=== PATIENT | female | born 1985 | race Caucasian/White ===

== ENCOUNTER 2018-08-15 15:27 | Emergency (ER) | payer SELFPAY ==
[2018-08-15] MEDS ORDERED: IPRATROPIUM/ALBUTEROL 0.5-2.5 MG/3 ML AMPUL NEB ONE (15:44)
[2018-08-15] MEDS ORDERED: AZITHROMYCIN 250 MG TABLET PO ONE (15:45)
[2018-08-15] MEDS ORDERED: PREDNISONE 20 MG TABLET PO ONE ×2 (15:45→21:23)
--- NOTE | 2018-08-15 16:31 | ER Document Report ---
ED General - General Chief Complaint: Chest Congestion Stated Complaint: COUGH Time Seen by Provider: 08/15/18 15:41 Mode of Arrival: Ambulatory Information source: Patient Notes: 32-year-old female with hypertension, not currently on medication presents with complaint of cough, congestion that started 6 days prior to arrival. Patient states that she is experiencing chills, sweats. She reports increased shortness of breath with minimal activity. Denies any lower extremity TRAVEL OUTSIDE OF THE [place] IN LAST 30 DAYS: No - HPI Onset: Last week Onset/Duration: Gradual, Persistent Quality of pain: Achy Severity: Mild Associated symptoms: Chills, Nonproductive cough, Fever, Shortness of breath. denies: Diarrhea, Nausea, Vomiting Exacerbated by: Walking, Coughing Relieved by: Denies Similar symptoms previously: Yes Recently seen / treated by doctor: No - Related Data Allergies/Adverse Reactions: bee venom protein (honey bee) Allergy (Verified 08/15/18 18:33) paroxetine [From Paxil] Allergy (Verified 08/15/18 18:33) Past Medical History - General Information source: Patient - Social History Smoking Status: Current Every Day Smoker Cigarette use (# per day): Yes - 10 Chew tobacco use (# tins/day): No Smoking Education Provided: Yes - Smoking cessation counseling was provided for 4 minutes at the bedside Frequency of alcohol use: Rare Drug Abuse: None Lives with: Spouse/Significant other Family History: Reviewed & Not Pertinent Patient has suicidal ideation: No Patient has homicidal ideation: No - Past Medical History Cardiac Medical History: Reports: Hx Hypertension - unmedicated Renal/ Medical History: Denies: Hx Peritoneal Dialysis Past Surgical History: Reports: Hx Tonsillectomy Review of Systems - Review of Systems Notes: REVIEW OF SYSTEMS: CONSTITUTIONAL : Denies weight loss, recent hospitalizations. EENT: Denies visual changes, eye pain. Denies sore throat, oral lesions, difficulty swallowing. CARDIOVASCULAR: Denies chest pain. Denies palpitations. Denies lower extremity edema. RESPIRATORY: + Cough, wheezing, shortness of breath GASTROINTESTINAL: Denies abdominal pain or distention. Denies nausea, vomiting, or diarrhea. Denies blood in vomitus, stools, or per rectum. Denies black, tarry stools. Denies constipation. GENITOURINARY: Denies difficulty urinating, painful urination, frequency, blood in urine, or vaginal discharge. MUSCULOSKELETAL: Denies back or neck pain or stiffness. Denies joint pain or swelling. SKIN: Denies rash, lesions or sores. HEMATOLOGIC : Denies easy bruising or bleeding. LYMPHATIC: Denies swollen glands. NEUROLOGICAL: Denies confusion or altered mental status. Denies loss of consciousness. Denies dizziness or lightheadedness. Denies headache. Denies weakness or paralysis. Denies problems difficulty with ambulation, slurred speech. Denies sensory loss, numbness, or tingling. Denies seizures. PSYCHIATRIC: Denies anxiety or stress. Denies depression, suicidal ideation, or homicidal ideation. Denies visual or auditory hallucinations. Physical Exam - Vital signs Vitals: Temp Pulse Resp BP Pulse Ox 98.5 F 98 24 H 146/90 H 98 08/15/18 15:37 08/15/18 15:37 08/15/18 15:37 08/15/18 15:37 08/15/18 15:37 - Notes Notes: PHYSICAL EXAMINATION: GENERAL: Morbidly obese, no acute distress. HEAD: Atraumatic, normocephalic. EYES: Pupils equal round and reactive to light, extraocular movements intact, conjunctiva are normal. ENT: Nares patent, oropharynx clear without exudates. Moist mucous membranes. NECK: Normal range of motion, supple without lymphadenopathy LUNGS: Expiratory wheezing in the lower lung [place] bilaterally. No accessory muscle use, no tachypnea, no hypoxia. HEART: Regular rate and rhythm without murmurs ABDOMEN: Soft, nontender, nondistended abdomen. No guarding, no rebound. No masses appreciated. Female : deferred Musculoskeletal: Normal range of motion, no pitting or edema. No cyanosis. NEUROLOGICAL: Cranial nerves grossly intact. Normal speech, normal gait. Normal sensory, motor exams PSYCH: Normal mood, normal affect. SKIN: Warm, Dry, normal turgor, no rashes or lesions noted. Course - Re-evaluation Re-evalutation: Chest X-Ray 08/15/18 15:45 IMPRESSION: Enlarged heart with mild vascular congestion. Chest X-Ray 08/15/18 15:45 IMPRESSION: Enlarged heart with mild vascular congestion. Chest/Abdomen CTA 08/15/18 17:55 IMPRESSION: NORMAL CTA OF THE CHEST. NO PULMONARY EMBOLI. Temp Pulse Resp BP Pulse Ox 99.5 F 95 20 165/95 H 96 08/15/18 22:10 08/15/18 22:10 08/15/18 22:10 08/15/18 22:27 08/15/18 22:10 Chest X-Ray 08/15/18 15:45 IMPRESSION: Enlarged heart with mild vascular congestion. Chest/Abdomen CTA 08/15/18 17:55 IMPRESSION: NORMAL CTA OF THE CHEST. NO PULMONARY EMBOLI. Laboratory 08/15/18 08/15/18 08/15/18 18:10 18:10 18:10 WBC 11.4 H RBC 4.67 Hgb 12.1 Hct 38.3 MCV 82 MCH 25.9 L MCHC 31.7 L RDW 17.4 H Plt Count 328 Seg Neutrophils % 77.3 Lymphocytes % 14.9 Monocytes % 6.0 Eosinophils % 1.5 Basophils % 0.3 Absolute Neutrophils 8.8 H Absolute Lymphocytes 1.7 Absolute Monocytes 0.7 Absolute Eosinophils 0.2 Absolute Basophils 0.0 Sodium 139.9 Potassium 4.0 Chloride 98 Carbon Dioxide 36 H Anion Gap 6 BUN 9 Creatinine 0.55 Est GFR ( Amer) > 60 Est GFR (Non-Af Amer) > 60 Glucose 113 H Calcium 8.9 Total Bilirubin 0.5 Direct Bilirubin 0.2 Neonat Total Bilirubin Not Reportable Neonat Direct Bilirubin Not Reportable Neonat Indirect Bili Not Reportable AST 16 ALT 12 Alkaline Phosphatase 125 Creatine Kinase 36 CK-MB (CK-2) 0.44 Troponin I < 0.012 NT-Pro-B Natriuret Pep 353 H Total Protein 7.4 Albumin 3.6 08/15/18 16:41 Patient did receive breathing treatments, prednisone, labetalol, Lasix and azithromycin during her ED course. 08/17/18 12:32 32-year-old female presented with upper respiratory symptoms including cough, congestion and shortness of breath. She did mention worsening shortness of breath with exertion which is new for her. Patient is morbidly obese and weighs nearly 400 pounds. She states that she has known that she has had high blood pressure since she was a teenager but after several medications that failed to the control her blood pressure she stated that she just "gave up". Initial workup was a chest x-ray for the patient's persistent cough and reports of chills and sweats. This showed an enlarged heart with mild vascular congestion. This prompted a further workup to assess for possible congestive heart failure due to untreated hypertension. Upon arrival patient was afebrile, markedly hypertensive. Breath sounds are diminished but I believe this is likely secondary to large body habitus. CBC showed mild leukocytosis without anemia. CMP unremarkable. Cardiac enzymes are within normal limits. Patient does have a BNP of 353. CT of the chest was obtained and showed no evidence of pleural effusion, pulmonary emboli. I spent over 30 minutes discussing the acute need for patient to make some significant lifestyle changes including smoking cessation, weight loss, exercise. We discussed complications of untreated hypertensive including heart failure, coronary artery disease, stroke. Patient is very tearful but thankful. I urged her to establish primary care, seek nutritional advice and begin exercising immediately or she would be looking at a short life filled with multiple medical complications. Patient states that approximately 4 weeks she will have insurance from her new job. I urged her to make an appointment now so that within the next month she will be able to get it. I did give her 1 week's worth of Lasix and started her on a blood pressure medication. Patient was evaluated and treated as appropriate for the patient's presenting symptoms and complaint, with consideration of any critical or life threatening conditions that may be associated with their obtained history and exam as noted above. All results were discussed with patient and... Patient provided the opportunity to ask questions, and express concerns. Patient was educated on treatments based on their presumed diagnosis as noted above. At this time we will discharge the patient with return precautions and follow-up recommendations. Verbal discharge instructions given a the bedside. Medication warnings reviewed. Patient is in agreement with this plan and has verbalized understanding of return precautions. After careful consideration I feel that that patient can be safely discharged from the emergency department, they were advised to followup with a primary care physician in 2-3 days. Dictation on this chart was performed using voice recognition software and may result in unintended grammatical, spelling, syntax or errors. - Vital Signs Vital signs: Temp Pulse Resp BP Pulse Ox 99.5 F 95 20 165/95 H 96 08/15/18 22:10 08/15/18 22:10 08/15/18 22:10 08/15/18 22:27 08/15/18 22:10 - Laboratory Result Diagrams: 08/15/18 18:10 08/15/18 18:10 Laboratory results interpreted by me: 08/15/18 08/15/18 08/15/18 18:10 18:10 18:10 WBC 11.4 H MCH 25.9 L MCHC 31.7 L RDW 17.4 H Absolute Neutrophils 8.8 H Carbon Dioxide 36 H Glucose 113 H NT-Pro-B Natriuret Pep 353 H - Diagnostic Test Radiology reviewed: Image reviewed, Reports reviewed - EKG Interpretation by Me EKG shows normal: Sinus rhythm Rate: Normal Rhythm: NSR When compared to previous EKG there are: Previous EKG unavailable Critical Care Note - Critical Care Note Total time excluding time spent on procedures (mins): 35 - Minutes of critical care time spent in direct contact evaluating and reevaluating the patient, treating symptoms, reviewing labs and studies and speaking with family and consultants excluding any procedures Discharge - Discharge Clinical Impression: Cough, Cardiac enlargement, Pulmonary vascular congestion, Tobacco use Hypertension Qualifiers: Hypertension type: unspecified Qualified Code(s): I10 - Essential (primary) hypertension Obesity Qualifiers: Obesity type: unspecified obesity type Obesity classification: adult class 3 (BMI >= 40) Serious obesity comorbidity presence: with serious comorbidity Body mass index: BMI 70 or greater Qualified Code(s): E66.01 - Morbid (severe) obesity due to excess calories Dyspnea Qualifiers: Dyspnea type: dyspnea on exertion Qualified Code(s): R06.09 - Other forms of dyspnea URI (upper respiratory infection) Qualifiers: URI type: unspecified viral URI Qualified Code(s): J06.9 - Acute upper respiratory infection, unspecified Condition: Good Disposition: HOME, SELF-CARE Instructions: Congestive Heart Failure ([facility]), Diet to Decrease Risk of Heart Attack ([facility]), Heart Disease Prevention ([facility]), Upper Respiratory Illness ([facility]) Additional Instructions: Regarding Blood Pressure: Your blood pressure was noted to be greater than 120/80 at least once in the emergency room today. It is recommended that you follow-up with her primary care physician in the next week for repeat blood pressure check. The Centers for Medicare and Medicaid Services has specific recommendations regarding a person's blood pressure. There are several lifestyle modifications that are recommended in order to help lower your blood pressure. These include: Quitting smoking if you smoke. Reducing the amount of sodium in your diet. Getting regular exercise Limiting alcohol to no more than 2 drinks a day for men and one drink a day for women. Eating a healthy diet, including more fruits and vegetables, low fat dairy products, less saturated and total fat. Losing weight if you are overweight. FOLLOW-UP: Call your doctor's office and let them know your blood pressure was elevated and you were advised to get your blood pressure checked in the above time-line. If you are unable to get into your doctor's office in this time period, you can follow-up with a new physician (I have left the numbers below for a few primary care doctors affiliated with this [facility]) or return to the ER. PRIMARY CARE PHYSICIANS: Dr. Rios Chao [address], [place] [address] [phone] Prescriptions: Hydrochlorothiazide [Hydrodiuril 25 mg Tablet] 25 mg PO QHS #30 tablet Furosemide [Lasix 20 mg Tablet] 20 mg PO QAM #10 tablet Prednisone [Deltasone 20 mg Tablet] 2 tab PO DAILY 5 Days #10 tablet Forms: Smoking Cessation Education, Elevated Blood Pressure Referrals: RIOS CHAO MD [ACTIVE STAFF] - Follow up in 1 week
--- NOTE | 2018-08-15 16:33 | RADIOLOGY REPORT (SQ) ---
EXAM DESCRIPTION: CHEST 2 VIEWS COMPLETED DATE/TIME: 08/15/2018 4:22 pm REASON FOR STUDY: cough fever COMPARISON: None. TECHNIQUE: Frontal and lateral radiographic views of the chest acquired. NUMBER OF VIEWS: Two view. LIMITATIONS: None. FINDINGS: LUNGS AND PLEURA: Mild vascular congestion. No evidence of overt pneumonia. MEDIASTINUM AND HILAR STRUCTURES: No masses or contour abnormalities. HEART AND VASCULAR STRUCTURES: Cardiac enlargement. BONES: No acute findings. HARDWARE: None in the chest. OTHER: No other significant finding. IMPRESSION: Enlarged heart with mild vascular congestion. TECHNICAL DOCUMENTATION: JOB ID: [id number] [employer]- All Rights Reserved Reading location - IP/workstation name: [email or web address]
[2018-08-15] MEDS ORDERED: LABETALOL HCL INJ 20 MG/4 ML DISP.SYRIN IV ONE ×2 (17:56→19:14)
[2018-08-15 18:26] LABS: ABSOLUTE EOSINOPHILS # (AUTO) 0.2 10^3/uL (0.0-0.6); ABSOLUTE LYMPHOCYTES (AUTO) 1.7 10^3/uL (0.5-4.7); ABSOLUTE MONOCYTES (AUTO) 0.7 10^3/uL (0.1-1.4); ABSOLUTE NEUT (AUTO) 8.8 10^3/uL (1.7-8.2); BASOPHILS % (AUTO) 0.3 % (0-2); EOSINOPHILS % (AUTO) 1.5 % (0-6); HEMATOCRIT 38.3 % (36.0-47.0); HEMOGLOBIN 12.1 g/dL (12.0-15.5); LYMPHOCYTES % (AUTO) 14.9 % (13-45); MEAN CORPUSCULAR HEMOGLOBIN 25.9 pg (27.0-33.4); MEAN CORPUSCULAR HGB CONC 31.7 g/dL (32.0-36.0); MEAN CORPUSCULAR VOLUME 82 fl (80-97); PLATELET COUNT 328 10^3/uL (150-450); RED BLOOD COUNT 4.67 10^6/uL (3.72-5.28); RED CELL DISTRIBUTION WIDTH 17.4 % (11.5-14.0); SEGMENTED NEUTROPHILS % (AUTO) 77.3 % (42-78); TOTAL CELLS COUNTED % (AUTO) 100 %; WHITE BLOOD COUNT 11.4 10^3/uL (4.0-10.5)
[2018-08-15 18:39] LABS: ALANINE AMINOTRANSFERASE 12 U/L (9-52); ALBUMIN 3.6 g/dL (3.5-5.0); ALKALINE PHOSPHATASE 125 U/L (38-126); ANION GAP 6 (5-19); ASPARTATE AMINO TRANSFERASE 16 U/L (14-36); BILIRUBIN,DIRECT 0.2 mg/dL (0.0-0.4); BILIRUBIN,TOTAL 0.5 mg/dL (0.2-1.3); BLOOD UREA NITROGEN 9 mg/dL (7-20); CALCIUM 8.9 mg/dL (8.4-10.2); CARBON DIOXIDE 36 mmol/L (22-30); CHLORIDE 98 mmol/L (98-107); CREATINE KINASE 36 U/L (30-135); GLUCOSE 113 mg/dL (75-110); SODIUM 139.9 mmol/L (137-145); TOTAL PROTEIN 7.4 g/dL (6.3-8.2)
[2018-08-15 18:51] LABS: CREATINE KINASE MB 0.44 ng/mL (<4.55); NT PRO BNP 353 pg/mL (<125)
[2018-08-15 18:53] LABS: TROPONIN I < 0.012 ng/mL
[2018-08-15] MEDS ORDERED: FUROSEMIDE INJ/PF 20 MG/2 ML SDV IV ONE (20:24)
--- NOTE | 2018-08-15 20:28 | EKG REPORT ---
SEVERITY:- NORMAL ECG - SINUS RHYTHM : Confirmed by: Eli White 15-Aug-2018 20:28:05
--- NOTE | 2018-08-15 20:38 | RADIOLOGY REPORT (SQ) ---
EXAM DESCRIPTION: CTA CHEST COMPLETED DATE/TIME: 08/15/2018 8:27 pm REASON FOR STUDY: sob COMPARISON: Recent radiographs. TECHNIQUE: CT scan of the chest performed using helical scanning technique with dynamic intravenous contrast injection. Images reviewed with lung, soft tissue and bone windows. Reconstructed coronal and sagittal MPR images reviewed. Additional 3 dimensional post-processing performed to develop Maximal Intensity Projection images (MT P). All images stored on PACS. All CT scanners at this facility use dose modulation, iterative reconstruction, and/or weight based d osing when appropriate to reduce radiation dose to as low as reasonably achievable (ALARA). [facility]: Dose Right [facility]: CareDose [facility]: Dose Right [facility]: Teradose 4D [facility]: Guidekick CONTRAST TYPE AND DOSE: contrast/concentration: Isovue 350.00 mg/ml; Total Contrast Delivered: 90.0 ml; Total Saline Delivered: 70.0 ml Contrast bolus adequate for pulmonary arteries and aorta. RENAL FUNCTION: None required. The patient is less than 50 years old. RADIATION DOSE: CT Rad equipment meets quality standard of care and radiation dose reduction techniq ues were employed. CTDIvol: 29.8 - 41.3 mGy. DLP: 1170 mGy-cm. . LIMITATIONS: None. FINDINGS: LUNGS AND PLEURA: No masses, infiltrates, or pneumothorax. No pleural effusions or pleura l calcifications. AORTA AND GREAT VESSELS: No aneurysm. Contrast bolus not optimized for the aorta. HEART: No pericardial effusion. No significant coronary artery calcifications. PULMONARY ARTERIES: No emboli visualized in the main pulmonary arteries or the segmental branches. HILAR AND MEDIASTINAL STRUCTURES: No identified masses or abnormal nodes. HARDWARE: None in the chest. UPPER ABDOMEN: No significant findings. Limited exam. THYROID AND OTHER SOFT TISSUES: No masses. No adenopathy. BONES: No acute or significant finding. 3D MIPS: Confirm above findings. OTHER: No other significant finding. IMPRESSION: NORMAL CTA OF THE CHEST. NO PULMONARY EMBOLI. COMMENT: Quality ID # [id number]: Final reports with documentation of one or more dose reduction techniques (e.g., Automated exposure control, adjustment of the mA and/or kV according to patient size, use of iterative reconstruction technique) TECHNICAL DOCUMENTATION: JOB ID: [id number] [employer]- All Rights Reserved Reading location - IP/workstation name: [email or web address]
[2018-08-15] MEDS ORDERED: ALBUTEROL SULFATE HFA (90 MCG/PUFF) 8 GM MDI (1 MDI/ER DISP) IH PRN (21:17)
[2018-08-15] MEDS ORDERED: HYDROCHLOROTHIAZIDE 25 MG TABLET PO ONE (21:23)
[2018-08-15 22:28] VITALS: BP 165/95
== END 2018-08-15 22:34 | disposition home or self-care (01) ==
LOC: ER 15:27
DX: J06.9 Acute upper respiratory infection, unspecified (principal); R06.09 Other forms of dyspnea; R09.89 Other specified symptoms and signs involving the circulatory and respiratory systems; I10 Essential (primary) hypertension; I51.7 Cardiomegaly; E66.01 Morbid (severe) obesity due to excess calories; Z68.45 Body mass index [BMI] 70 or greater, adult; R50.9 Fever, unspecified; R05 Cough; F17.210 Nicotine dependence, cigarettes, uncomplicated
CPT/HCPCS: 93005; 99406; 94640; 99285; 96374; 96375; 36415; 82553; 82550; 85025; 80053; 84484; 83880; 71046; 71275; 93010; J1940; J3490 ×2; J7512; J7620

== ENCOUNTER 2019-08-22 10:50 | Emergency (ER) | payer SELFPAY ==
--- NOTE | 2019-08-22 11:14 | ER Document Report ---
ED Medical Screen (RME) - General Chief Complaint: Swelling of Lower Extremity Stated Complaint: BLISTER DRAINAGE Time Seen by Provider: 08/22/19 11:07 Mode of Arrival: Ambulatory Information source: Patient Notes: 33-year-old female patient presenting to the emergency department with bilateral leg swelling, erythema and weeping. Patient reports symptoms have been going on for 1 month, worsening over the last few days. She has not sought medical treatment. I have greeted and performed a rapid initial assessment of this patient. A comprehensive ED assessment and evaluation of the patient, analysis of test results and completion of the medical decision making process will be conducted by additional ED providers. I have specifically instructed the patient or family members with the patient to immediately return to any nursing staff should anything change in the patient's condition or with their chief complaint. TRAVEL OUTSIDE OF THE [place] IN LAST 30 DAYS: No - Related Data Allergies/Adverse Reactions: bee venom protein (honey bee) Allergy (Verified 08/22/19 11:07) paroxetine [From Paxil] Allergy (Verified 08/22/19 11:07) Home Medications: multivitamin. ella Past Medical History - Social History Chew tobacco use (# tins/day): No Frequency of alcohol use: None Drug Abuse: None - Past Medical History Cardiac Medical History: Reports: Hx Hypertension - unmedicated Renal/ Medical History: Denies: Hx Peritoneal Dialysis Past Surgical History: Reports: Hx Tonsillectomy
[2019-08-22 11:53] LABS: ABSOLUTE EOSINOPHILS # (AUTO) 0.2 10^3/uL (0.0-0.6); ABSOLUTE LYMPHOCYTES (AUTO) 0.9 10^3/uL (0.5-4.7); ABSOLUTE MONOCYTES (AUTO) 0.4 10^3/uL (0.1-1.4); ABSOLUTE NEUT (AUTO) 6.2 10^3/uL (1.7-8.2); BASOPHILS % (AUTO) 0.5 % (0-2); EOSINOPHILS % (AUTO) 2.2 % (0-6); LYMPHOCYTES % (AUTO) 11.3 % (13-45); MEAN CORPUSCULAR HEMOGLOBIN 28.9 pg (27.0-33.4); MEAN CORPUSCULAR HGB CONC 31.5 g/dL (32.0-36.0); MEAN CORPUSCULAR VOLUME 92 fl (80-97); MONOCYTES % (AUTO) 5.8 % (3-13); PLATELET COUNT 228 10^3/uL (150-450); RED BLOOD COUNT 4.14 10^6/uL (3.72-5.28); RED CELL DISTRIBUTION WIDTH 22.1 % (11.5-14.0); SEGMENTED NEUTROPHILS % (AUTO) 80.2 % (42-78); TOTAL CELLS COUNTED % (AUTO) 100 %; WHITE BLOOD COUNT 7.7 10^3/uL (4.0-10.5)
[2019-08-22 11:55] LABS: ALBUMIN 3.2 g/dL (3.5-5.0); ALKALINE PHOSPHATASE 143 U/L (38-126); ASPARTATE AMINO TRANSFERASE 17 U/L (14-36); BILIRUBIN,DIRECT 0.3 mg/dL (0.0-0.4); BILIRUBIN,TOTAL 0.9 mg/dL (0.2-1.3); BLOOD UREA NITROGEN 10 mg/dL (7-20); C-REACTIVE PROTEIN 56.2 mg/L (<10.0); CALCIUM 8.8 mg/dL (8.4-10.2); CHLORIDE 94 mmol/L (98-107); GLUCOSE 113 mg/dL (75-110); POTASSIUM 4.3 mmol/L (3.6-5.0); TOTAL PROTEIN 7.7 g/dL (6.3-8.2)
[2019-08-22 12:00] LABS: ANION GAP 7 (5-19); CARBON DIOXIDE 36 mmol/L (22-30)
[2019-08-22] MEDS ORDERED: OXYCODONE-ACETAMINOPHEN 5-325 MG TABLET PO ONE (12:40)
[2019-08-22 12:41] LABS: ERYTHROCYTE SEDIMENTATION RATE 76 mm/hr (0-20)
[2019-08-22] MEDS ORDERED: VANCOMYCIN HCL INJ 1000 MG VIAL IV ONE (13:24)
[2019-08-22] MEDS ORDERED: FUROSEMIDE INJ/PF 40 MG/4 ML SDV IV ONE (13:25)
--- NOTE | 2019-08-22 15:11 | RADIOLOGY REPORT (SQ) ---
EXAM DESCRIPTION: TIBIA FIBULA RIGHT COMPLETED DATE/TIME: 08/22/2019 2:22 pm REASON FOR STUDY: pain/wound/eval for gas COMPARISON: None. NUMBER OF VIEWS: Two views. TECHNIQUE: Two radiographic images acquired of the right tibia and fibula to include the knee and an kle in at least one projection. LIMITATIONS: Morbidly obese patient FINDINGS: MINERALIZATION: Normal. BONES: No acute fracture or dislocation. Osteoarthritis at the right ankle and knee SOFT TISSUES: No obvious swelling or foreign body. OTHER: No soft tissue gas is present. IMPRESSION: Right ankle and knee osteoarthritis. No radiopaque foreign body or soft tissue gas is identified TECHNICAL DOCUMENTATION: JOB ID: [id number] [employer]- All Rights Reserved Reading location - IP/workstation name: [email or web address]
[2019-08-22] MEDS ORDERED: MORPHINE SULFATE 10 MG/ML INJ IV ONE (17:07)
[2019-08-22 17:56] VITALS: BP 129/85
--- NOTE | 2019-08-22 18:09 | ER Document Report ---
ED General - General Chief Complaint: Abscess Stated Complaint: BLISTER DRAINAGE Time Seen by Provider: 08/22/19 11:07 Mode of Arrival: Ambulatory Information source: Patient TRAVEL OUTSIDE OF THE [place] IN LAST 30 DAYS: No - HPI Notes: Patient presents with bilateral lower extremity pain. She states she has had this pain for over a month but has not seen a doctor. She states initially she noticed that her legs were swollen and draining fluid. Lately they have become more painful especially the right lower extremity. This pain is constant and a burning sensation. It is moderate in intensity and radiates up both legs. It is worse with movement or being touched. Is better with rest. She states she has been told in the past that she has high blood pressure and the early stages of congestive heart failure but she does not currently take any medications. She states she does not currently have a doctor. She states she has had no fever. No chest pain or shortness of breath. - Related Data Allergies/Adverse Reactions: bee venom protein (honey bee) Allergy (Verified 08/22/19 11:07) paroxetine [From Paxil] Allergy (Verified 08/22/19 11:07) Home Medications: multivitamin. lela Past Medical History - General Information source: Patient - Social History Smoking Status: Current Every Day Smoker Chew tobacco use (# tins/day): No Frequency of alcohol use: None Drug Abuse: None Family History: Reviewed & Not Pertinent Patient has suicidal ideation: No Patient has homicidal ideation: No - Past Medical History Cardiac Medical History: Reports: Hx Hypertension - unmedicated Renal/ Medical History: Denies: Hx Peritoneal Dialysis Past Surgical History: Reports: Hx Tonsillectomy Review of Systems - Review of Systems Constitutional: denies: Chills, Fever Cardiovascular: denies: Chest pain, Palpitations Respiratory: denies: Cough, Short of breath Gastrointestinal: denies: Diarrhea, Vomiting -: Yes All other systems reviewed and negative Physical Exam - Vital signs Vitals: Temp Pulse BP Pulse Ox 99.0 F 109 H 176/111 H 93 08/22/19 11:03 08/22/19 11:03 08/22/19 11:03 08/22/19 11:03 Interpretation: Hypertensive, Tachycardic - General General appearance: Appears well, Alert - HEENT Head: Normocephalic, Atraumatic Eyes: Normal Pupils: PERRL - Respiratory Respiratory status: No respiratory distress Chest status: Nontender Breath sounds: Normal Chest palpation: Normal - Cardiovascular Rhythm: Regular Heart sounds: Normal auscultation Murmur: No - Abdominal Inspection: Normal Distension: No distension Bowel sounds: Normal Tenderness: Nontender Organomegaly: No organomegaly - Back Back: Normal, Nontender - Extremities General upper extremity: Normal inspection, Nontender, Normal color, Normal ROM, Normal temperature General lower extremity: Other - Both lower extremities have 3+ pitting edema. They also have some erythema and induration consistent with chronic venous stasis. On the posterior aspect of the right calf she has a ulcer down into the dermis consistent with a venous stasis ulcer. Both legs have some blistering and are weeping serous fluid. There is no significant foul odor. She has some tenderness to palpation of both lower extremities mainly about the area of the venous stasis ulcer on the right.. No: Papito's sign - Neurological Neuro grossly intact: Yes Cognition: Normal Orientation: AAOx4 Virgilio Coma Scale Eye Opening: Spontaneous Virgilio Coma Scale Verbal: Oriented Virgilio Coma Scale Motor: Obeys Commands Virgilio Coma Scale Total: 15 Speech: Normal Motor strength normal: LUE, RUE, LLE, RLE Sensory: Normal - Psychological Associated symptoms: Normal affect, Normal mood - Skin Skin Temperature: Warm Skin Moisture: Dry Skin Color: Normal Course - Re-evaluation Re-evalutation: 08/22/19 18:04 Patient's clinical work-up is consistent with bilateral lower extremity venous stasis changes. She also appears to have an early cellulitis of the right lower extremity associated with the venous stasis ulcer. Patient has no fever and no white count. Her vital signs are stable. I did call and discussed the case with the hospitalist who felt that the patient would not benefit from admission. Therefore I am going to have the patient's legs wrapped. I will start the patient on antibiotics. I will start the patient on hydrochlorothiazide which will double as a diuretic as well as an antihypertensive. I am going to refer the patient to her primary care physician. I have informed the patient that if she is unable to be seen by primary care physician she should return to the emergency department for an evaluation in 5 to 7 days. Of note, bilateral Dopp ler show no evidence of DVT. 08/22/19 18:06 - Vital Signs Vital signs: Temp Pulse Resp BP Pulse Ox 98.4 F 98 16 129/85 H 95 08/22/19 17:55 08/22/19 17:55 08/22/19 17:55 08/22/19 17:55 08/22/19 17:55 - Laboratory Result Diagrams: 08/22/19 11:22 08/22/19 11:22 Laboratory results interpreted by me: 08/22/19 08/22/19 08/22/19 11:22 11:22 11:22 MCHC 31.5 L RDW 22.1 H Lymph % (Auto) 11.3 L Seg Neutrophils % 80.2 H ESR 76 H Chloride 94 L Carbon Dioxide 36 H Glucose 113 H Alkaline Phosphatase 143 H C-Reactive Protein 56.2 H NT-Pro-B Natriuret Pep 568 H Albumin 3.2 L - Diagnostic Test Radiology reviewed: Image reviewed, Reports reviewed Discharge - Discharge Clinical Impression: Bilateral lower leg cellulitis, Uncontrolled hypertension Venous stasis ulcer Qualifiers: Venous stasis ulcer site: calf Varicose vein presence: with varicose veins Laterality: right Non-pressure ulcer stage: limited to breakdown of skin Qualified Code(s): I83.012 - Varicose veins of right lower extremity with ulcer of calf; L97.211 - Non-pressure chronic ulcer of right calf limited to breakdown of skin Condition: Stable Disposition: HOME, SELF-CARE Instructions: Cephalexin ([facility]), Oral Narcotic Medication ([facility]), Trimethoprim- Sulfa ([facility]), Cellulitis ([facility]), Foot or Leg Ulcer ([facility]) Additional Instructions: Please call wound clinic at as soon as possible to arrange follow-up. Please also follow-up with your primary care physician as soon as possible. If you are unable to see either your primary care physician or wound clinic please return here to the emergency department in 5 to 7 days for a recheck. Prescriptions: Sulfamethoxazole/Trimethoprim [Bactrim Ds Tablet] 1 each PO BID 7 Days #14 table t Hydrochlorothiazide [Hydrodiuril 25 mg Tablet] 25 mg PO QAM #30 tablet Cephalexin Monohydrate [Keflex 500 mg Capsule] 500 mg PO QID 7 Days #28 capsule Hydrocodone/Acetaminophen [[place] 5-325 mg Tablet] 1 tab PO Q6 PRN 3 Days #12 tablet PRN Reason: Forms: Elevated Blood Pressure
--- NOTE | 2019-08-22 19:17 | RADIOLOGY REPORT (SQ) ---
EXAM DESCRIPTION: VENOUS UNILATERAL LOWER COMPLETED DATE/TIME: 08/22/2019 6:33 pm REASON FOR STUDY: right lower ext COMPARISON: None. TECHNIQUE: Dynamic and static stein scale and color images acquired of the right leg venous system. S elected spectral images acquired with additional compression and augmentation maneuvers. The contrala teral common femoral vein and saphenofemoral junction were also imaged. Images stored on PACS. LIMITATIONS: Extreme body habitus. FINDINGS: COMMON FEMORAL: Normal phasicity, compression and augmentation. No visualized echogenic ma terial on stein scale. No defects on color images. FEMORAL: Normal compression and augmentation. No visualized echogenic material on stein scale. No defe cts on color images. POPLITEAL: Normal compression, augmentation. No visualized echogenic material on stein scale. No defec ts on color images. CALF VESSELS: Poorly visualized due to body habitus. Within this limitation, normal compression, aug mentation of the posterior tibial veins. No visualized echogenic material on stein scale. No defects o n color images. GSV and SSV: Normal compression, augmentation. No visualized echogenic material on stein scale. No def ects on color images. ANY DEEP VENOUS INSUFFICIENCY: Not evaluated. ANY EVIDENCE OF POPLITEAL CYST: No. OTHER: No other significant finding. CONTRALATERAL COMMON FEMORAL VEIN AND SAPHENOFEMORAL JUNCTION: Normal phasicity, compression and augmentation. No visualized echogenic material on stein scale. No de fects on color images. IMPRESSION: Examination is limited by extreme body habitus, particularly in the calf. Within this l imitation, negative examination for deep venous thrombosis in the right lower extremity. TECHNICAL DOCUMENTATION: JOB ID: [id number] [employer]- All Rights Reserved Reading location - IP/workstation name: [email or web address]
== END 2019-08-22 18:29 | disposition home or self-care (01) ==
LOC: ER 10:50
DX: L03.116 Cellulitis of left lower limb (principal); L03.115 Cellulitis of right lower limb; I83.012 Varicose veins of right lower extremity with ulcer of calf; L97.211 Non-pressure chronic ulcer of right calf limited to breakdown of skin; I10 Essential (primary) hypertension
CPT/HCPCS: 99284; 96375; 96365; 36415; 85025; 85652; 86140; 80053; 83880; 93971; 73590; J1940; J2270; J3370

== ENCOUNTER 2019-09-05 10:44 | Emergency (ER) | payer SELFPAY ==
--- NOTE | 2019-09-05 10:59 | ER Document Report ---
ED Medical Screen (RME) - General Chief Complaint: Wound Recheck Stated Complaint: WOUND RECHECK Time Seen by Provider: 09/05/19 10:55 TRAVEL OUTSIDE OF THE [place] IN LAST 30 DAYS: No - HPI Notes: 09/05/19 10:58 Patient is a 33-year-old female who presents for reevaluation after she was seen a couple weeks ago for her venous stasis ulcers and wounds to her lower legs. Patient states that she did finish her antibiotics, but does continue to have weeping and drainage. She has not noticed any fever. Her venous Doppler at that time was unremarkable. No chest pain or shortness of breath. I have treated and performed a rapid initial assessment of this patient. A comprehensive ED assessment and evaluation of the patient, analysis of test results and completion of medical decision making process will be conducted by additional ED providers. PHYSICAL EXAMINATION: GENERAL: Well-appearing, well-nourished and in no acute distress. A&Ox4. Answers questions appropriately. Legs: Pitting edema noted with large ulcerations to the backside of both legs. - Related Data Allergies/Adverse Reactions: bee venom protein (honey bee) Allergy (Verified 09/05/19 10:56) paroxetine [From Paxil] Allergy (Verified 09/05/19 10:56) Past Medical History - Past Medical History Cardiac Medical History: Reports: Hx Hypertension - unmedicated Renal/ Medical History: Denies: Hx Peritoneal Dialysis Past Surgical History: Reports: Hx Tonsillectomy
[2019-09-05 12:24] LABS: ALBUMIN 3.9 g/dL (3.5-5.0); ALKALINE PHOSPHATASE 193 U/L (38-126); ASPARTATE AMINO TRANSFERASE 28 U/L (14-36); BILIRUBIN,DIRECT 0.5 mg/dL (0.0-0.4); BILIRUBIN,TOTAL 1.1 mg/dL (0.2-1.3); BLOOD UREA NITROGEN 20 mg/dL (7-20); CALCIUM 9.4 mg/dL (8.4-10.2); CHLORIDE 88 mmol/L (98-107); GLUCOSE 126 mg/dL (75-110); TOTAL PROTEIN 9.2 g/dL (6.3-8.2)
[2019-09-05 12:31] LABS: ANION GAP 12 (5-19); CARBON DIOXIDE 36 mmol/L (22-30)
[2019-09-05 12:34] LABS: ABSOLUTE BASOPHILS # (AUTO) 0.1 10^3/uL (0.0-0.2); ABSOLUTE EOSINOPHILS # (AUTO) 0.3 10^3/uL (0.0-0.6); ABSOLUTE MONOCYTES (AUTO) 0.4 10^3/uL (0.1-1.4); ABSOLUTE NEUT (AUTO) 6.4 10^3/uL (1.7-8.2); BASOPHILS % (AUTO) 0.8 % (0-2); EOSINOPHILS % (AUTO) 3.2 % (0-6); HEMATOCRIT 40.6 % (36.0-47.0); LYMPHOCYTES % (AUTO) 11.9 % (13-45); MEAN CORPUSCULAR HEMOGLOBIN 29.3 pg (27.0-33.4); MEAN CORPUSCULAR VOLUME 92 fl (80-97); MONOCYTES % (AUTO) 4.4 % (3-13); PLATELET COUNT 264 10^3/uL (150-450); RED BLOOD COUNT 4.43 10^6/uL (3.72-5.28); RED CELL DISTRIBUTION WIDTH 21.5 % (11.5-14.0); SEGMENTED NEUTROPHILS % (AUTO) 79.7 % (42-78); TOTAL CELLS COUNTED % (AUTO) 100 %
--- NOTE | 2019-09-05 13:08 | RADIOLOGY REPORT (SQ) ---
EXAM DESCRIPTION: TIBIA FIBULA LEFT COMPLETED DATE/TIME: 09/05/2019 12:47 pm REASON FOR STUDY: large chronic ulcerations posterior lower legs COMPARISON: None. NUMBER OF VIEWS: Two views. TECHNIQUE: Two radiographic images acquired of the left tibia and fibula to include the knee and ank le in at least one projection. LIMITATIONS: None. FINDINGS: MINERALIZATION: Normal. BONES: No acute fracture or dislocation. No cortical lucency or sclerosis. Degenerative changes are noted at the lateral tibiofemoral compartment at the left knee. SOFT TISSUES: There is diffuse soft tissue swelling. IMPRESSION: No plain radiographic evidence for osteomyelitis of the left tibia or fibula. Diffuse s oft tissue swelling. If clinical concern persists, contrast-enhanced MRI can be obtained for further evaluation. TECHNICAL DOCUMENTATION: JOB ID: [id number] 2010 [employer]- All Rights Reserved Reading location - IP/workstation name: [email or web address]
--- NOTE | 2019-09-05 13:20 | RADIOLOGY REPORT (SQ) ---
EXAM DESCRIPTION: TIBIA FIBULA RIGHT COMPLETED DATE/TIME: 09/05/2019 12:47 pm REASON FOR STUDY: large chronic ulcerations posterior lower legs COMPARISON: Right tibia/fibula x-ray 08/22/2019. NUMBER OF VIEWS: Two views. TECHNIQUE: Two radiographic images acquired of the right tibia and fibula to include the knee and an kle in at least one projection. LIMITATIONS: Patient's body habitus FINDINGS: MINERALIZATION: Normal. BONES: No acute fracture or dislocation. No obvious cortical lucency or sclerosis. Degenerative audra nges with joint space narrowing and osteophytosis are noted at the lateral tibiofemoral compartment o f the right knee. SOFT TISSUES: There is diffuse soft tissue swelling. IMPRESSION: No plain radiograph evidence for osteomyelitis at the right tibia or fibula. Diffuse so ft tissue swelling. If clinical concern persists, contrast-enhanced MRI can be obtained for further evaluation. TECHNICAL DOCUMENTATION: JOB ID: [id number] 2010 [employer]- All Rights Reserved Reading location - IP/workstation name: [email or web address]
[2019-09-05] MEDS ORDERED: HYDROCODONE/ACETAMINOPHEN 5-325 MG TABLET PO ONE (14:01)
--- NOTE | 2019-09-05 14:50 | PDOC CONSULTATION ---
Consultation Consult Date: 09/05/19 Provider Consulted: STEFANIE YOON Consult reason:: Bilateral venous stasis leg ulcers History of Present Illness Patient complains of: Bilateral leg venous stasis ulcer History of Present Illness: JORDAN GALICIA is a 33 year old female, morbidly obese, with a history of chronic venous stasis posterior leg ulcers present bilaterally. The patient presents with above symptoms for the emergency room and was consulted for wound treatment. According to the patient, she called the local wound care clinic and she was given an appointment appointment 6 weeks from the date of the phone call. Past Medical History Cardiac Medical History: Reports: Hypertension - unmedicated Past Surgical History Past Surgical History: Reports: Tonsillectomy Social History Smoking Status: Current Every Day Smoker Family History Family History: Reviewed & Not Pertinent Parental Family History Reviewed: No Children Family History Reviewed: No Sibling(s) Family History Reviewed.: No Medication/Allergy Home Medications: Furosemide [Lasix 20 mg Tablet] 20 mg PO QAM #10 tablet 08/15/18 Hydrochlorothiazide [Hydrodiuril 25 mg Tablet] 25 mg PO QHS #30 tablet 08/15/18 Prednisone [Deltasone 20 mg Tablet] 2 tab PO DAILY 5 Days #10 tablet 08/15/18 Cephalexin Monohydrate [Keflex 500 mg Capsule] 500 mg PO QID 7 Days #28 capsule 08/22/19 Hydrochlorothiazide [Hydrodiuril 25 mg Tablet] 25 mg PO QAM #30 tablet 08/22/19 Hydrocodone/Acetaminophen [[place] 5-325 mg Tablet] 1 tab PO Q6 PRN 3 Days #12 tablet 08/22/19 Sulfamethoxazole/Trimethoprim [Bactrim Ds Tablet] 1 each PO BID 7 Days #14 tablet 08/22/19 Hydrocodone/Acetaminophen [[place] 5-300 mg Tablet] 1 each PO Q6HP PRN #15 tablet 09/05/19 Allergies/Adverse Reactions: bee venom protein (honey bee) Allergy (Verified 09/05/19 10:56) paroxetine [From Paxil] Allergy (Verified 09/05/19 10:56) Physical Exam Vital Signs: Temp Pulse Resp BP Pulse Ox 98.6 F 117 H 20 153/87 H 94 09/05/19 11:00 09/05/19 11:00 09/05/19 11:00 09/05/19 11:00 09/05/19 11:00 Intake & Output 09/04/19 09/05/19 09/06/19 06:59 06:59 06:59 Weight 189.1 kg General appearance: PRESENT: no acute distress, morbidly obese Head exam: PRESENT: atraumatic Eye exam: PRESENT: EOMI Mouth exam: PRESENT: moist, neck supple Teeth exam: PRESENT: poor dentation Neck exam: PRESENT: full ROM Respiratory exam: PRESENT: clear to auscultation meredith Cardiovascular exam: PRESENT: RRR GI/Abdominal exam: PRESENT: normal bowel sounds, soft Rectal exam: PRESENT: deferred Extremities exam: PRESENT: +2 edema - Bilateral lower extremities, other - Morbid obese Lower extremities, large venous stasis ulcer present on each calf on the posterior surface covered with yellow, dried, fibrinous matter Results Laboratory Results: 09/05/19 11:35 09/05/19 11:35 09/05/19 09/05/19 11:35 11:35 WBC 8.0 RBC 4.43 Hgb 13.0 Hct 40.6 MCV 92 MCH 29.3 MCHC 32.0 RDW 21.5 H Plt Count 264 Seg Neutrophils % 79.7 H Sodium 135.7 L Potassium 4.0 Chloride 88 L Carbon Dioxide 36 H Anion Gap 12 BUN 20 Creatinine 0.70 Est GFR ( Amer) > 60 Glucose 126 H Calcium 9.4 Total Bilirubin 1.1 AST 28 Alkaline Phosphatase 193 H Total Protein 9.2 H Albumin 3.9 Impressions: Tibia/Fibula X-Ray 09/05/19 11:00 IMPRESSION: No plain radiograph evidence for osteomyelitis at the right tibia or fibula. Diffuse soft tissue swelling. If clinical concern persists, contrast-enhanced MRI can be obtained for further evaluation. Assessment & Plan - Diagnosis (1) Venous stasis ulcer of left lower leg with edema of left lower leg Is this a current diagnosis for this admission?: Yes - Plan Summary Plan Summary: Assessment: Morbidly obese female Bilateral posterior leg venous stasis ulcers, no infection identified, covered with dried, crusty, yellow fibrinous material Patient states that she called the local wound care clinic and she was given an appointment to 6 weeks away Plan: 1. Dress both feet and legs with Unna boot dressings, Kerlix roll and Hernan bandage 2. Arrange for home health care nurse to come to the patient's house weekly for Unna boot dressing changes 3. Patient to remove the bandages on the day of and before the home health care nurse visit, soak both legs in tub filled with water and Epson salts, and gently scrape the crusty fibrinous cover of the ulcers 4. Have home health nurse replace Unna boot following gentle scraping of the venous stasis ulcers weekly 5. Patient to go to wound care clinic when appointment has been scheduled
--- NOTE | 2019-09-05 14:56 | Operative Report ---
Nonrecallable Operative Report DATE OF SURGERY: 09/05/19 PREOPERATIVE DIAGNOSIS: Morbid obesity; bilateral venous stasis leg ulcers POSTOPERATIVE DIAGNOSIS: Same OPERATION: Bilateral leg Unna boot placement SURGEON: STEFANIE YOON ANESTHESIA: Other - None TISSUE REMOVED OR ALTERED: None COMPLICATIONS: None ESTIMATED BLOOD LOSS: Not applicable INTRAOPERATIVE FINDINGS: Large bilateral posterior leg venous stasis ulcer involving the entire posterior surface of each calf PROCEDURE: The procedure was done at bedside and similarly done on each over extremity. The extremity of interest was elevated and the Unna boot was placed starting from just proximal to the toes up to the foot and lower extremity to just below the knee. This was covered with Kerlix roll and an Hernan bandage without tension. The patient tolerated procedure well and discharged to home. Home health care nurse to replace the Unna boot and home weekly Patient to remove the bandages and to soak the legs in a tub with Epsom salts and water on the day of and prior to the visit of the home health nurse and to gently debride the wounds from the yellow crusty matter covering the ulcers. Patient to return to the wound care clinic when the appointment has been scheduled in 6 weeks
[2019-09-05 15:14] VITALS: BP 152/87
--- NOTE | 2019-09-21 08:32 | ER Document Report ---
Entered by ROGELIO CAZARES SCRIBE 09/05/19 1133 Acting as scribe for:SATHYA GUALLPA IV, MD ED General - General Chief Complaint: Wound Recheck Stated Complaint: WOUND RECHECK Time Seen by Provider: 09/05/19 10:55 Information source: Patient Notes: This 33 year old female patient presents to the emergency department today for a wound recheck. Patient states there has been constant yellow drainage from the wounds on the back of both of her calves. Patient reports that her wounds have no really been healing. Patient states she is on antibiotics and has been using a light wound care wash and less neosporin to care for the wounds as instructed from her last visit. Patient states advil, aleve, and ibuprofen does not help alleviate the pain in either wound. TRAVEL OUTSIDE OF THE [place] IN LAST 30 DAYS: No - Related Data Allergies/Adverse Reactions: bee venom protein (honey bee) Allergy (Verified 09/05/19 10:56) paroxetine [From Paxil] Allergy (Verified 09/05/19 10:56) Past Medical History - General Information source: Patient - Social History Smoking Status: Current Every Day Smoker Cigarette use (# per day): Yes Family History: Reviewed & Not Pertinent Patient has suicidal ideation: No Patient has homicidal ideation: No - Past Medical History Cardiac Medical History: Reports: Hx Hypertension - unmedicated Past Surgical History: Reports: Hx Tonsillectomy Review of Systems - Review of Systems Constitutional: No symptoms reported EENT: No symptoms reported Cardiovascular: No symptoms reported Respiratory: No symptoms reported Gastrointestinal: No symptoms reported Genitourinary: No symptoms reported Female Genitourinary: No symptoms reported Musculoskeletal: No symptoms reported Skin: See HPI, Other - Scabbing and yellow drainage from wounds on the back of both calfs. Hematologic/Lymphatic: No symptoms reported Neurological/Psychological: No symptoms reported -: Yes All other systems reviewed and negative Physical Exam - Vital signs Vitals: Temp Pulse Resp BP Pulse Ox 98.6 F 117 H 20 153/87 H 94 09/05/19 11:00 09/05/19 11:00 09/05/19 11:00 09/05/19 11:00 09/05/19 11:00 - General General appearance: Appears well, Alert - HEENT Head: Normocephalic, Atraumatic Eyes: Normal - Respiratory Respiratory status: No respiratory distress - Cardiovascular Rhythm: Regular - Abdominal Inspection: Normal Distension: No distension - Neurological Neuro grossly intact: Yes Cognition: Normal Orientation: AAOx4 - Psychological Associated symptoms: Normal affect, Normal mood - Skin Skin irregularity: Erythema - Mild erythema around lacerations peripherally on both sides., Laceration - Large confluent lacerations of posterior calves bilaterally. Location of irregularity: Extremities - posterior calfs bilaterally Irregularity with: Other - Clear serous discharge. Course - Vital Signs Vital signs: Temp Pulse Resp BP Pulse Ox 98.1 F 98 15 152/87 H 93 09/05/19 15:13 09/05/19 15:13 09/05/19 15:13 09/05/19 15:13 09/05/19 15:13 - Laboratory Result Diagrams: 09/05/19 11:35 09/05/19 11:35 Laboratory results interpreted by me: 09/05/19 09/05/19 11:35 11:35 RDW 21.5 H Lymph % (Auto) 11.9 L Seg Neutrophils % 79.7 H Sodium 135.7 L Chloride 88 L Carbon Dioxide 36 H Glucose 126 H Direct Bilirubin 0.5 H Alkaline Phosphatase 193 H Total Protein 9.2 H - Consults DR. YOON Time consulted: 12:40 - DR YOON PLACED VANDA BOOTS ON PT, RECOMMENDS HOME HEALTH FOR WEEKLY VANDA BOOT CHANGES UNTIL PT CAN BE SEEN AT WOUND CLINIC Reason for consultation: 09/05/19 13:59 WOUND CARE Consulted provider: will come to ER Discharge - Discharge Clinical Impression: Bilateral leg ulcer Qualifiers: Non-pressure ulcer stage: unspecified non-pressure ulcer stage Qualified Code(s): L97.919 - Non-pressure chronic ulcer of unspecified part of right lower leg with unspecified severity; L97.929 - Non-pressure chronic ulcer of unspecified part of left lower leg with unspecified severity Condition: Good Disposition: HOME, SELF-CARE Additional Instructions: Return to the Emergency Department without delay if any worse. HOME CARE INSTRUCTIONS & INFORMATION: Thank you for choosing us for your medical needs. We hope you're satisfied with the care you received. After you leave, you must properly care for your problem and, at the same time, observe its progress. Any condition can change. Some illnesses can change rapidly over hours or days. If your condition worsens, return to the Emergency Department or see your physician promptly. ABOUT YOUR X-RAYS AND EKG'S: If you had an EKG or X-rays taken, they have been read by the Emergency Physician. The X-rays and EKG's will also be read by a Radiologist or Mortar Mixer Operator within 24 hours. If discrepancies are noted, you will be notified by telephone. Please be certain the ED has a correct telephone number & address where you can be reached. Also, realize that some fractures or abnormalities do not show up on initial X-rays. If your symptoms continue, see your physician. ABOUT YOUR LABORATORY TEST: If you had laboratory tests, the results have been reviewed by the Emergency Physician. Some test results (for example cultures) may not be available for several days. You will be contacted if any test result shows you need additional treatment. Please be certain the ED has a correct telephone number and address where you can be reached. ABOUT YOUR MEDICATIONS: You will receive instructions on how to take your medicine on the prescription label you receive. Additional information may be provided by the Pharmacy. If you have questions afterwards, call the ED for clarification or further instructions. Some prescribed medications may cause drowsiness. Do not perform tasks such as driving a car or operating machinery without consulting your Pharmacist. If you feel you need a refill of pain medication, your condition will need re-evaluation. Please do not call for a refill of any medication. ABOUT YOUR SIGNATURE: Signature of this document acknowledges to followin. Understanding that you received emergency treatment and that you may be released before al medical problems are known or treated. Please be certain the ED has a correct phone number & address where you can be reached. 2. Acknowledgement that you will arrange for follow-up care as recommended. 3. Authorization for the Emergency Physician to provide information to your follow-up Physician in order to maximize your care. AT ANY TIME, IF YOUR SYMPTOMS CHANGE SIGNIFICANTLY OR WORSEN OR YOU DEVELOP NEW SYMPTOMS, RETURN TO THE EMERGENCY DEPARTMENT IMMEDIATELY FOR RE-EVALUATION. OUR GOAL IS TO PROVIDE EXCELLENT MEDICAL CARE! WE HOPE THAT WE HAVE MET YOUR EXPECTATIONS DURING YOUR EMERGENCY DEPARTMENT VISIT AND THAT YOU FEEL YOU HAVE RECEIVED EXCELLENT CARE! Prescriptions: Hydrocodone/Acetaminophen [Vicodin 5-300 mg Tablet] 1 each PO Q6HP PRN #15 tablet PRN Reason: PAIN I personally performed the services described in the documentation, reviewed and edited the documentation which was dictated to the scribe in my presence, and it accurately records my words and actions.
== END 2019-09-05 15:13 | disposition home or self-care (01) ==
LOC: ER 10:44
DX: I87.2 Venous insufficiency (chronic) (peripheral) (principal); S81.812A Laceration without foreign body, left lower leg, initial encounter; S81.811A Laceration without foreign body, right lower leg, initial encounter; X58.XXXA Exposure to other specified factors, initial encounter; I10 Essential (primary) hypertension; F17.210 Nicotine dependence, cigarettes, uncomplicated; Z91.030 Bee allergy status; Z88.8 Allergy status to other drugs, medicaments and biological substances; Z79.899 Other long term (current) drug therapy; Z79.52 Long term (current) use of systemic steroids
CPT/HCPCS: 36415; 80053; 85025; 99284